=== PATIENT | female | born 1935 | race Caucasian/White ===

== ENCOUNTER 2017-12-11 20:01 | Emergency (ER) | payer OTHER ==
[~2017-12-11] VITALS: Ht 170.2 cm; Wt 111.6 kg
[~2017-12-11 20:01] MED LIST: COZAAR100 MG PO; GLUCOPHAGE500 MG PO; LASIX40 MG PO; LEVAQUIN500 MG PO; LEXAPRO10 MG PO; LO-DOSE ASPIRIN81 M1 PO; PLAVIX75 MG PO; PREVACID15 MG PO; PROAIR HFA8.5 GM IH; RESTASIS 01 DROP/0.4 BOTH EYES; SYNTHROID112 MCG PO; TOPROL XL25 MG PO; VOLTAREN 1% GE100 GM TP; ZOCOR20 MG PO
[2017-12-11 22:25] VITALS: BP 145/67
== END 2017-12-11 22:27 | disposition home or self-care (01) ==
LOC: EME → EDBD 20:01 → EME 22:27
DX: S20.219A Contusion of unspecified front wall of thorax, initial encounter (principal); M79.89 Other specified soft tissue disorders; W18.30XA Fall on same level, unspecified, initial encounter; J44.9 Chronic obstructive pulmonary disease, unspecified; Z99.81 Dependence on supplemental oxygen; I11.0 Hypertensive heart disease with heart failure; I50.9 Heart failure, unspecified; E78.5 Hyperlipidemia, unspecified; R73.03 Prediabetes; K21.9 Gastro-esophageal reflux disease without esophagitis; F32.9 Major depressive disorder, single episode, unspecified; M19.90 Unspecified osteoarthritis, unspecified site; I25.2 Old myocardial infarction; Z87.442 Personal history of urinary calculi; Z85.850 Personal history of malignant neoplasm of thyroid; Z90.49 Acquired absence of other specified parts of digestive tract; Z96.653 Presence of artificial knee joint, bilateral; Z79.02 Long term (current) use of antithrombotics/antiplatelets; Z79.82 Long term (current) use of aspirin; Z79.84 Long term (current) use of oral hypoglycemic drugs; Z88.5 Allergy status to narcotic agent; Z88.2 Allergy status to sulfonamides
CPT/HCPCS: 70450; 71101; 73610; 99281; 99284